=== PATIENT | female | born 1930 | race American Indian/Alaskan Native ===

== ENCOUNTER 2018-02-27 19:26 | Observation (INO) | payer MEDICARE, OTHER ==
[2018-02-27] MEDS ORDERED: ASPIRIN PO ONE (19:48)
[2018-02-27 20:24] LABS: Basophils # (Auto) 0.1 K/mm3 (0.0-0.1); Basophils % (Auto) 2.6 % (0.0-1.8); Eosinophils # (Auto) 0.2 K/mm3 (0.0-0.4); Eosinophils % (Auto) 4.5 % (0.0-4.3); Hematocrit 33.9 % (30.3-42.9); Hemoglobin 11.1 gm/dl (10.1-14.3); Lymphocytes # (Auto) 1.5 K/mm3 (1.2-5.4); Lymphocytes % (Auto) 31.4 % (13.4-35.0); Mean Corpuscular HGB Conc 33 % (30-34); Mean Corpuscular Hemoglobin 26 pg (28-32); Mean Corpuscular Volume 81 fl (79-97); Monocytes # (Auto) 0.6 K/mm3 (0.0-0.8); Monocytes % (Auto) 12.2 % (0.0-7.3); Platelet Count 253 K/mm3 (140-440)
[2018-02-27 20:25] LABS: Red Cell Distribution Width 20.6 % (13.2-15.2)
[2018-02-27 20:27] LABS: BUN/Creatinine Ratio 24; Blood Urea Nitrogen 17 mg/dL (7-17); Calcium 8.9 mg/dL (8.4-10.2); Hemolysis Index 1
--- NOTE | 2018-02-27 21:29 | XRay Report ---
FINAL REPORT EXAM: XR CHEST 1V AP HISTORY: chest pain TECHNIQUE: upright single view chest PRIORS: None. FINDINGS: Cardiac and mediastinal contours are unremarkable. No focal pulmonary infiltrate is identified. No pleural fluid collection seen. Pulmonary vasculature is unremarkable. There is superior migration the humerus bilaterally at the shoulder joint consistent with chronic rotator cuff pathology. IMPRESSION: No acute findings in the chest
[2018-02-27] MEDS ORDERED: TYLENOL PO ONE (21:59)
[2018-02-27] MEDS ORDERED: NITROSTAT SL ONE ×2 (21:59→23:07)
[2018-02-27] MEDS ORDERED: BABY ASPIRIN PO ONE (22:00)
--- NOTE | 2018-02-27 22:00 | Emergency Department Report ---
HPI - General Chief Complaint: Chest Pain Time Seen by Provider: 02/27/18 20:14 - HPI HPI: The patient is a 87-year-old female with a significant history of hypertension or heart disease, who presents for evaluation of chest pain. The patient reports 1 week of midsternal chest pain, pressure-like in quality, mild to moderate in severity, and radiating into the left upper quadrant of the abdomen at times. The patient denies fever, neck pain, parasthesias, cough, hemoptysis, palpitations, dizziness, syncope, unilateral leg swelling, calf muscle pain. Patient also denies cocaine or other stimulant use. ED Past Medical Hx - Past Medical History Hx Hypertension: Yes Hx Congestive Heart Failure: Yes Additional medical history: High colesterol - Social History Smoking Status: Never Smoker Substance Use Type: None ED Review of Systems ROS: Stated complaint: CP Other details as noted in HPI Constitutional: denies: fever ENT: denies: throat or neck pain Respiratory: denies: cough, shortness of breath Cardiovascular: reports: chest pain Endocrine: denies unexplained weight loss or gain Gastrointestinal: denies: abdominal pain, nausea Genitourinary: denies: dysuria Musculoskeletal: denies: leg swelling Skin: denies: rash Neurological: denies: headache Hematological/Lymphatic: denies: easy bleeding or easy bruising Psych: denies sadness or hopelessness Physical Exam - Physical Exam Physical Exam: General: well-nourished, well-developed, no acute distress Head: Normocephalic, atraumatic Eyes: normal sclera ENT: Mucous membranes are pink and moist Neck: trachea midline, neck supple, No neck stiffness, no cervical adenopathy Respiratory: Breath sounds equal bilaterally, no wheezing, rales, or rhonchi Cardio: S1 and S2 present, no murmurs, rubs, gallops, capillary refill is brisk Abdomen: Normoactive bowel sounds, soft abdomen, no rigidity, no guarding or rebound tenderness Chest WALL/Back: No tenderness to palpation of the chest wall, no CVA tenderness with percussion Musc: No pitting edema Skin: No rash Neuro: no facial drooping, normal speech Psych: Normal affect ED Medical Decision Making - Lab Data Result diagrams: 02/27/18 20:05 02/27/18 20:05 - Medical Decision Making The patient was seen and examined by myself. The patient is placed on a satellite project site monitor and continuous pulse ox. On initial evaluation, the patient was found to be in no distress. EKG was negative for findings suggestive of acute cardiac infarct. The patient is given an aspirin and pain medicine. Labs and imaging are obtained. Chest x-ray is negative for pneumothorax, focal consolidation, pulmonary vascular congestion, pleural effusion, or other obvious acute cardiopulmonary disease process. Lab results were non-revealing including negative troponin, WBC, hemoglobin, hematocrit, electrolytes, renal function. The patient was reevaluated and reported that their symptoms were improved. As the patient has chest pain and risk factors for development of acute coronary event, the patient will be admitted for close cardiopulmonary monitoring, serial troponins , and evaluation by cardiology. The physician on-call was contacted. They presented to the emergency department and evaluated the patient. They agreed to admit the patient. The ED admit order was placed. The patient was admitted in guarded condition. Critical care attestation.: If time is entered above; I have spent that time in minutes in the direct care of this critically ill patient, excluding procedure time. ED Disposition Clinical Impression: Acute chest pain Disposition: 09 OP ADMIT IP TO THIS HOSP Is pt being admited?: Yes Does the pt Need Aspirin: Yes Condition: Fair Time of Disposition: 22:00
[2018-02-27] MEDS ORDERED: PROVENTIL IH PRN (22:39)
[2018-02-27] MEDS ORDERED: TYLENOL PO PRN (22:39)
[2018-02-27] MEDS ORDERED: ZOFRAN IV PRN (22:39)
[2018-02-27] MEDS ORDERED: SODIUM CHLORIDE FLUSH SYRINGE 10 ML IV PRN (22:39)
--- NOTE | 2018-02-27 22:47 | History and Physical Report ---
History of Present Illness Date of examination: 02/27/18 History of present illness: E7-year[age]old woman with a history of hypertension, CHF, COPD, hyperlipidemia comes emergency room with complaints of chest pain that has been intermittent over the last 1 week. The patient is in the epigastric area which she is unable to describe, unclear along the last for, intensity 5/10, no radiation, she can admit him for exacerbating or relieving factors. She admits to palpitation, no nausea vomiting, shortness of breath, diaphoresis Review of systems Constitutional: no weight loss, chills Ears, eyes, nose, mouth and throat: no nasal congestion, no nasal discharge, no sinus pressure, no vision change, no red eye. Neck: No neck pain or rigidity. Cardiovascular:+chest pain, palpitations Respiratory: No cough, shortness of breath Gastrointestinal: no abdominal pain, hematochezia Genitourinary : no dysuria, frequency , no hematuria Musculoskeletal: no joint swelling or muscle ache Integumentary: no rash, no pruritis Neurological: no parathesias, no numbness, no focal weakness Endocrine: no cold or heat intolerance, no polyuria or polydipsia Hematologic/Lymphatic: no easy bruising, no easy bleeding, no gland swelling Allergic/Immunologic: no urticaria, no angioedema. PAST MEDICAL HISTORY:hypertension, CHF, COPD, hyperlipidemia PAST SURGICAL HISTORY: None SOCIAL HISTORY: Denies alcohol, tobacco, drugs FAMILY HISTORY: Hypertension Medications and Allergies Allergies Allergy/AdvReac Type Severity Reaction Status Date / Time No Known Allergies Allergy Unverified 02/27/18 19:48 Active Meds: Active Medications Acetaminophen (Tylenol) 650 mg PO Q4H PRN PRN Reason: Pain MILD(1-3)/Fever >100.5/AREVALO Albuterol (Proventil) 2.5 mg IH Q3HRT PRN PRN Reason: Shortness Of Breath Enoxaparin Sodium (Lovenox) 30 mg SUB-Q QDAY DANG Ondansetron HCl (Zofran) 4 mg IV Q8H PRN PRN Reason: Nausea And Vomiting Sodium Chloride (Sodium Chloride Flush Syringe 10 Ml) 10 ml IV BID DANG Sodium Chloride (Sodium Chloride Flush Syringe 10 Ml) 10 ml IV PRN PRN PRN Reason: LINE FLUSH Exam - Physical Exam Narrative exam: Gen. appearance: Patient lying in bed, no apparent distress HEENT: Normocephalic, atraumatic, pupils equally round and reactive to light, extraocular movement intact, and no sclericterus,. No JVD or thyromegaly or nodule,neck supple, no carotid bruit ,mucous membranes moist, no exudate or erythema Heart: S1, S2, regular rate and rhythm Lungs: Clear to auscultation bilaterally, breathing comfortable Abdomen: Positive bowel sounds, nontender, nondistended, no organomegaly Extremity: +1 edema, no cyanosis, clubbing Skin: No rash, nodules, warm, dry Neuro: Oriented 3, cranial nerves II-12 intact, speech is fluent, motor and sensory intact Results - Labs CBC & Chem 7: 02/27/18 20:05 02/27/18 20:05 Labs: Abnormal lab results 02/27/18 02/27/18 Range/Units 20:05 20:05 MCH 26 L (28-32) pg RDW 20.6 H (13.2-15.2) % [place] % (Auto) 12.2 H (0.0-7.3) % Eos % (Auto) 4.5 H (0.0-4.3) % Baso % (Auto) 2.6 H (0.0-1.8) % Glucose 105 H (65-100) mg/dL - Imaging and Cardiology EKG: image reviewed Chest x-ray: image reviewed Assessment and Plan Assessment Acute chest pain Hypertension CHF, stable Hyperlipidemia COPD Plan Admit to medicine Check cardiac enzymes, consult cardiology Continue appropriate outpatient medications Divt prophaxis
[2018-02-27] MEDS ORDERED: BABY ASPIRIN ONE (23:06)
[2018-02-27] MEDS ORDERED: TYLENOL ONE (23:06)
[2018-02-27 23:24] LABS: Creatine Kinase MB 5.8 ng/mL (0.0-4.0)
[2018-02-28 06:07] LABS: Basophils # (Auto) 0.1 K/mm3 (0.0-0.1); Basophils % (Auto) 2.9 % (0.0-1.8); Eosinophils # (Auto) 0.2 K/mm3 (0.0-0.4); Eosinophils % (Auto) 6.1 % (0.0-4.3); Hematocrit 32.2 % (30.3-42.9); Hemoglobin 10.6 gm/dl (10.1-14.3); Lymphocytes # (Auto) 1.3 K/mm3 (1.2-5.4); Lymphocytes % (Auto) 33.6 % (13.4-35.0); Mean Corpuscular HGB Conc 33 % (30-34); Mean Corpuscular Hemoglobin 27 pg (28-32); Mean Corpuscular Volume 81 fl (79-97); Monocytes # (Auto) 0.5 K/mm3 (0.0-0.8); Monocytes % (Auto) 13.7 % (0.0-7.3); Platelet Count 246 K/mm3 (140-440); Red Blood Count 3.98 M/mm3 (3.65-5.03)
[2018-02-28 06:13] LABS: BUN/Creatinine Ratio 23; Blood Urea Nitrogen 16 mg/dL (7-17); Calcium 8.4 mg/dL (8.4-10.2); Hemolysis Index 61
[2018-02-28 06:14] LABS: Red Cell Distribution Width 20.2 % (13.2-15.2)
[2018-02-28 06:15] LABS: Creatine Kinase MB 5.7 ng/mL (0.0-4.0)
[2018-02-28] MEDS: LOVENOX SUB-Q SCH (11:34)
[2018-02-28] MEDS: SODIUM CHLORIDE FLUSH SYRINGE 10 ML IV SCH ×2 (11:35→22:00)
--- NOTE | 2018-02-28 16:16 | Consultation ---
History of Present Illness Consult date: 02/28/18 Consult reason: chest pain History of present illness: This is a frail, 87yr old woman who gives a history of prior CVA and CHF. Details of her CHF is limited but patient reports she was managed at [place] several years ago. She was brought to this hospital with complaints of intermittent chest pain. Chest pain is poorly characterized. She denies shortness of breath, coughs and palpitations associated with her chest pain. Today, patient reports she is chest pain free. Chest xray is negative. Her ECG is benign, a normal sinus rhythm. A cardiac consultation was requested for further evaluation. Medications and Allergies Allergies Allergy/AdvReac Type Severity Reaction Status Date / Time No Known Allergies Allergy Unverified 02/27/18 19:48 Home Medications Medication Instructions Recorded Confirmed Last Taken Type No Known Home Medications [No 02/28/18 02/28/18 Unknown History Reported Home Medications] Active Meds: Active Medications Acetaminophen (Tylenol) 650 mg PO Q4H PRN PRN Reason: Pain MILD(1-3)/Fever >100.5/AREVALO Albuterol (Proventil) 2.5 mg IH Q3HRT PRN PRN Reason: Shortness Of Breath Enoxaparin Sodium (Lovenox) 30 mg SUB-Q QDAY [facility] Last Admin: 02/28/18 11:34 Dose: 30 mg Ondansetron HCl (Zofran) 4 mg IV Q8H PRN PRN Reason: Nausea And Vomiting Sodium Chloride (Sodium Chloride Flush Syringe 10 Ml) 10 ml IV BID [facility] Last Admin: 02/28/18 11:35 Dose: 10 ml Sodium Chloride (Sodium Chloride Flush Syringe 10 Ml) 10 ml IV PRN PRN PRN Reason: LINE FLUSH Physical Examination Vital Signs Pulse Resp BP Pulse Ox 91 H 20 161/64 96 02/27/18 20:00 02/27/18 20:00 02/27/18 20:00 02/27/18 20:00 General appearance: no acute distress HEENT: Positive: PERRL Neck: Positive: trachea midline Cardiac: Positive: Reg Rate and Rhythm Lungs: Positive: Decreased Breath Sounds Neuro: Positive: Weakness Extremities: Present: +1 Edema Results 02/28/18 05:08 02/28/18 05:08 Cardiac Enzymes 02/27/18 02/28/18 Range/Units 22:58 05:08 CK-MB (CK-2) 5.8 H 5.7 H (0.0-4.0) ng/mL CBC 02/27/18 02/28/18 Range/Units 20:05 05:08 WBC 4.7 3.8 L (4.5-11.0) K/mm3 RBC 4.20 3.98 (3.65-5.03) M/mm3 Hgb 11.1 10.6 (10.1-14.3) gm/dl Hct 33.9 32.2 (30.3-42.9) % Plt Count 253 246 (140-440) K/mm3 Lymph # 1.5 1.3 (1.2-5.4) K/mm3 [place] # 0.6 0.5 (0.0-0.8) K/mm3 Eos # 0.2 0.2 (0.0-0.4) K/mm3 Baso # 0.1 0.1 (0.0-0.1) K/mm3 Comprehensive Metabolic Panel 02/27/18 02/28/18 Range/Units 20:05 05:08 Sodium 142 139 (137-145) mmol/L Potassium 4.0 4.4 (3.6-5.0) mmol/L Chloride 102.0 104.4 (98-107) mmol/L Carbon Dioxide 24 26 (22-30) mmol/L BUN 17 16 (7-17) mg/dL Creatinine 0.7 0.7 (0.7-1.2) mg/dL Glucose 105 H 86 (65-100) mg/dL Calcium 8.9 8.4 (8.4-10.2) mg/dL Assessment and Plan Chest pain, atypical Prior CVA We will get an echocardiogram for LVEF assessment.
--- NOTE | 2018-02-28 17:35 | Progress Note ---
Assessment and Plan Assessment and plan: 87-year-old woman with a history of hypertension, CHF, COPD, hyperlipidemia comes emergency room with complaints of chest pain that has been intermittent over the last 1 week. The patient is in the epigastric area which she is unable to describe, unclear along the last for, intensity 5/10, no radiation, she can admit him for exacerbating or relieving factors. She admits to palpitation, no nausea vomiting, shortness of breath, diaphoresis Chest pain - Cardiac enzymes are negative, EKG NAF, cardiology evaluated and chest pain is unlikely angina pectoris - cardiology consult appreciated History of CHF - patient will have echo COPD - Stable and will continue albuterol inhaler PRn DVT prophylaxis - Lovenox History Interval history: Patient was seen and evaluated this morning, just pain subsided, patient was breathing comfortably. Hospitalist Physical - Physical exam Narrative exam: Not in cardiopulmonary distress. The patient appeared well nourished and normally developed. Vital signs as documented. Head exam is unremarkable. No scleral icterus . Neck is without jugular venous distension, thyromegaly, or carotid bruits. Lungs are clear to auscultation. Cardiac exam reveals regular rate and Rhythm. First and second heart sounds normal. No murmurs, rubs or gallops. Abdominal exam reveals normal bowel sounds, no masses, no organomegaly and no aortic enlargement. Extremities are nonedematous and both femoral and pedal pulses are normal. 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 No focal weakness. - Constitutional Vitals: Temp Pulse Resp BP Pulse Ox 97.9 F 71 16 176/60 99 02/28/18 12:13 02/28/18 12:13 02/28/18 12:13 02/28/18 12:13 02/28/18 12:13 General appearance: Present: no acute distress Results - Labs CBC & Chem 7: 02/28/18 05:08 02/28/18 05:08 Labs: Laboratory Last Values WBC 3.8 K/mm3 (4.5-11.0) L 02/28/18 05:08 RBC 3.98 M/mm3 (3.65-5.03) 02/28/18 05:08 Hgb 10.6 gm/dl (10.1-14.3) 02/28/18 05:08 Hct 32.2 % (30.3-42.9) 02/28/18 05:08 MCV 81 fl (79-97) 02/28/18 05:08 MCH 27 pg (28-32) L 02/28/18 05:08 MCHC 33 % (30-34) 02/28/18 05:08 RDW 20.2 % (13.2-15.2) H 02/28/18 05:08 Plt Count 246 K/mm3 (140-440) 02/28/18 05:08 Lymph % (Auto) 33.6 % (13.4-35.0) 02/28/18 05:08 [place] % (Auto) 13.7 % (0.0-7.3) H 02/28/18 05:08 Eos % (Auto) 6.1 % (0.0-4.3) H 02/28/18 05:08 Baso % (Auto) 2.9 % (0.0-1.8) H 02/28/18 05:08 Lymph # 1.3 K/mm3 (1.2-5.4) 02/28/18 05:08 [place] # 0.5 K/mm3 (0.0-0.8) 02/28/18 05:08 Eos # 0.2 K/mm3 (0.0-0.4) 02/28/18 05:08 Baso # 0.1 K/mm3 (0.0-0.1) 02/28/18 05:08 Seg Neutrophils % 43.7 % (40.0-70.0) 02/28/18 05:08 Seg Neutrophils # 1.6 K/mm3 (1.8-7.7) L 02/28/18 05:08 Sodium 139 mmol/L (137-145) 02/28/18 05:08 Potassium 4.4 mmol/L (3.6-5.0) 02/28/18 05:08 Chloride 104.4 mmol/L (98-107) 02/28/18 05:08 Carbon Dioxide 26 mmol/L (22-30) 02/28/18 05:08 Anion Gap 13 mmol/L 02/28/18 05:08 BUN 16 mg/dL (7-17) 02/28/18 05:08 Creatinine 0.7 mg/dL (0.7-1.2) 02/28/18 05:08 Estimated GFR > 60 ml/min 02/28/18 05:08 BUN/Creatinine Ratio 23 % 02/28/18 05:08 Glucose 86 mg/dL (65-100) 02/28/18 05:08 Calcium 8.4 mg/dL (8.4-10.2) 02/28/18 05:08 Total Creatine Kinase 209 units/L (30-135) H 02/28/18 05:08 CK-MB (CK-2) 5.7 ng/mL (0.0-4.0) H 02/28/18 05:08 CK-MB (CK-2) Rel Index 2.7 (0-4) 02/28/18 05:08 Troponin T < 0.010 ng/mL (0.00-0.029) 02/28/18 05:08
[2018-03-01 08:20] LABS: BUN/Creatinine Ratio 21; Blood Urea Nitrogen 15 mg/dL (7-17); Calcium 8.4 mg/dL (8.4-10.2); Hemolysis Index 5
--- NOTE | 2018-03-01 10:04 | Progress Note ---
Assessment and Plan Chest pain, atypical Prior CVA Recommendations: Chest pain is atypical, does not likely represent angina pectoris, ECG is normal. We will get an echocardiogram for left ventricular function assessment, with regard to history of heart failure. Otherwise, will pursue a conservative approach in this frail 87-year-old. Subjective Date of service: 03/01/18 Interval history: Patient is alert and oriented and appears comfortable. She denies chest pain and shortness of breath. Objective Vital Signs Temp Pulse Pulse Resp BP BP Pulse Ox 03/01/18 08:44 2 L 03/01/18 04:03 76 167/56 99 03/01/18 00:44 99.6 F 77 18 171/64 100 02/28/18 23:58 77 171/64 100 02/28/18 22:00 80 02/28/18 20:28 98.9 F 76 20 161/57 98 02/28/18 20:10 90 2 L 02/28/18 19:42 85 161/57 98 02/28/18 18:28 95 02/28/18 15:57 97.9 F 71 18 172/72 100 02/28/18 12:13 97.9 F 71 16 176/60 99 - Physical Examination General: No Apparent Distress HEENT: Positive: PERRL Neck: Positive: trachea midline Cardiac: Positive: Reg Rate and Rhythm Lungs: Positive: Decreased Breath Sounds Neuro: Positive: Weakness Extremities: Present: +1 Edema - Labs and Meds Comprehensive Metabolic Panel 03/01/18 Range/Units 07:26 Sodium 138 (137-145) mmol/L Potassium 4.4 (3.6-5.0) mmol/L Chloride 105.1 (98-107) mmol/L Carbon Dioxide 28 (22-30) mmol/L BUN 15 (7-17) mg/dL Creatinine 0.7 (0.7-1.2) mg/dL Glucose 85 (65-100) mg/dL Calcium 8.4 (8.4-10.2) mg/dL
[2018-03-01] MEDS: LOVENOX SUB-Q SCH (11:58)
[2018-03-01] MEDS: SODIUM CHLORIDE FLUSH SYRINGE 10 ML IV SCH ×2 (11:58→21:56)
--- NOTE | 2018-03-01 13:59 | Progress Note ---
Assessment and Plan Assessment and plan: 87-year-old woman with a history of hypertension, CHF, COPD, hyperlipidemia comes emergency room with complaints of chest pain that has been intermittent over the last 1 week. The patient is in the epigastric area which she is unable to describe, unclear along the last for, intensity 5/10, no radiation, she can admit him for exacerbating or relieving factors. She admits to palpitation, no nausea vomiting, shortness of breath, diaphoresis Chest pain - Cardiac enzymes are negative, EKG NAF, cardiology evaluated and chest pain is unlikely angina pectoris - cardiology consult appreciated History of CHF - patient will have echo COPD - Stable and will continue albuterol inhaler PRn Severe Dementia - supportive care DVT prophylaxis - Lovenox Possible DC tomorrow History Interval history: Patient was seen and evaluated this morning, just pain subsided, patient was breathing comfortably. Hospitalist Physical - Physical exam Narrative exam: Not in cardiopulmonary distress. The patient appeared well nourished and normally developed. Vital signs as documented. Head exam is unremarkable. No scleral icterus . Neck is without jugular venous distension, thyromegaly, or carotid bruits. Lungs are clear to auscultation. Cardiac exam reveals regular rate and Rhythm. First and second heart sounds normal. No murmurs, rubs or gallops. Abdominal exam reveals normal bowel sounds, no masses, no organomegaly and no aortic enlargement. Extremities are nonedematous and both femoral and pedal pulses are normal. 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 - Constitutional Vitals: Temp Pulse Resp BP Pulse Ox 98.3 F 60 18 157/53 100 03/01/18 12:00 03/01/18 12:00 03/01/18 12:00 03/01/18 12:00 03/01/18 12:16 General appearance: Present: no acute distress Results - Labs CBC & Chem 7: 02/28/18 05:08 03/01/18 07:26 Labs: Laboratory Last Values WBC 3.8 K/mm3 (4.5-11.0) L 02/28/18 05:08 RBC 3.98 M/mm3 (3.65-5.03) 02/28/18 05:08 Hgb 10.6 gm/dl (10.1-14.3) 02/28/18 05:08 Hct 32.2 % (30.3-42.9) 02/28/18 05:08 MCV 81 fl (79-97) 02/28/18 05:08 MCH 27 pg (28-32) L 02/28/18 05:08 MCHC 33 % (30-34) 02/28/18 05:08 RDW 20.2 % (13.2-15.2) H 02/28/18 05:08 Plt Count 246 K/mm3 (140-440) 02/28/18 05:08 Lymph % (Auto) 33.6 % (13.4-35.0) 02/28/18 05:08 [place] % (Auto) 13.7 % (0.0-7.3) H 02/28/18 05:08 Eos % (Auto) 6.1 % (0.0-4.3) H 02/28/18 05:08 Baso % (Auto) 2.9 % (0.0-1.8) H 02/28/18 05:08 Lymph # 1.3 K/mm3 (1.2-5.4) 02/28/18 05:08 [place] # 0.5 K/mm3 (0.0-0.8) 02/28/18 05:08 Eos # 0.2 K/mm3 (0.0-0.4) 02/28/18 05:08 Baso # 0.1 K/mm3 (0.0-0.1) 02/28/18 05:08 Seg Neutrophils % 43.7 % (40.0-70.0) 02/28/18 05:08 Seg Neutrophils # 1.6 K/mm3 (1.8-7.7) L 02/28/18 05:08 Sodium 138 mmol/L (137-145) 03/01/18 07:26 Potassium 4.4 mmol/L (3.6-5.0) 03/01/18 07:26 Chloride 105.1 mmol/L (98-107) 03/01/18 07:26 Carbon Dioxide 28 mmol/L (22-30) 03/01/18 07:26 Anion Gap 9 mmol/L 03/01/18 07:26 BUN 15 mg/dL (7-17) 03/01/18 07:26 Creatinine 0.7 mg/dL (0.7-1.2) 03/01/18 07:26 Estimated GFR > 60 ml/min 03/01/18 07:26 BUN/Creatinine Ratio 21 % 03/01/18 07:26 Glucose 85 mg/dL (65-100) 03/01/18 07:26 Calcium 8.4 mg/dL (8.4-10.2) 03/01/18 07:26 Total Creatine Kinase 209 units/L (30-135) H 02/28/18 05:08 CK-MB (CK-2) 5.7 ng/mL (0.0-4.0) H 02/28/18 05:08 CK-MB (CK-2) Rel Index 2.7 (0-4) 02/28/18 05:08 Troponin T < 0.010 ng/mL (0.00-0.029) 02/28/18 05:08
[2018-03-02 07:43] LABS: BUN/Creatinine Ratio 21; Blood Urea Nitrogen 15 mg/dL (7-17); Calcium 8.2 mg/dL (8.4-10.2); Hemolysis Index 4
[2018-03-02] MEDS ORDERED: NORVASC PO SCH (10:00)
[2018-03-02] MEDS: LOVENOX SUB-Q SCH (10:31)
--- NOTE | 2018-03-02 11:03 | Discharge Summary ---
Providers - Providers Date of Admission: 02/27/18 22:39 Attending physician: NAINA MONK MD 02/27/18 22:39 Consult to Physician [CONS] Routine Comment: Consulting Provider: STARR RHODES Physician Instructions: Reason For Exam: cp Primary care physician: MACHINE BOBBIN WINDER Hospitalization Reason for admission: hypothyrodism, hypertension Condition: Fair Pertinent studies: Echo - Discharge Diagnoses (1) Acute chest pain Status: Acute (2) Hypothyroidism Status: Acute (3) Hypertension Status: Acute Core Measure Documentation - Palliative Care Palliative Care/ Comfort Measures: Not Applicable - Core Measures Any of the following diagnoses?: none Exam - Physical Exam Narrative exam: Not in cardiopulmonary distress. The patient appeared well nourished and normally developed. Vital signs as documented. Head exam is unremarkable. No scleral icterus . Neck is without jugular venous distension, thyromegaly, or carotid bruits. Lungs are clear to auscultation. Cardiac exam reveals regular rate and Rhythm. First and second heart sounds normal. No murmurs, rubs or gallops. Abdominal exam reveals normal bowel sounds, no masses, no organomegaly and no aortic enlargement. Extremities are nonedematous and both femoral and pedal pulses are normal. 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 - Constitutional Vitals: Temp Pulse Resp BP Pulse Ox 97.9 F 69 14 183/68 99 03/02/18 08:18 03/02/18 10:31 03/02/18 08:18 03/02/18 10:31 03/02/18 08:18 Plan Activity: no restrictions Weight Bearing Status: Full Weight Bearing Diet: low salt Additional Instructions: Follow @[facility] in 1-2 weeks Follow up with: JEFFREY ESTRADA MD [Primary Care Provider] - 3-5 Days Prescriptions: Levothyroxine [Synthroid] 50 mcg PO QAM #30 tablet
[2018-03-02 13:14] VITALS: BP 167/53
[2018-03-03] MEDS ORDERED: SYNTHROID PO SCH (09:31)
[2018-03-06 12:48] LABS: ANA Screen, IFA Positive (Negative)
== END 2018-03-02 14:00 | disposition home or self-care (01) ==
LOC: ED 19:26 → 4A 22:39
PROVIDERS: ADMIT Internal Medicine; ATTEND Internal Medicine
DX: R07.89 Other chest pain (principal); I11.0 Hypertensive heart disease with heart failure; I50.9 Heart failure, unspecified; J44.9 Chronic obstructive pulmonary disease, unspecified; E78.5 Hyperlipidemia, unspecified
CPT/HCPCS: 36415; 71045; 80048; 82550; 82553; 84443; 84484; 85025; 86038; 86618; 93005; 93010; 93306; 94760; 96372; 99285; G0378; J1650